=== PATIENT | female | born 2000 | race Caucasian/White ===

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

== ENCOUNTER 2018-02-01 10:19 | Outpatient (CLI) | payer MEDICAID ==
[2018-02-01 11:31] LABS: HCG,QUALITATIVE BLOOD NEGATIVE
== END 2018-02-01 10:20 | disposition home or self-care (01) ==
LOC: LAB 10:19
PROVIDERS: ATTEND Obstetrics & Gynecology
DX: Z01.812 Encounter for preprocedural laboratory examination (principal); N92.1 Excessive and frequent menstruation with irregular cycle
CPT/HCPCS: 36415; 83001; 83520; 84703

== ENCOUNTER 2018-02-02 06:08 | Day surgery (SDC) | payer MEDICAID ==
--- NOTE | 2018-02-01 12:38 | PREOP HISTORY & PHYSICAL ---
DATE OF SERVICE: 02/02/2018 Physician: Oralia Snider DO FACOG IDENTIFICATION: A 17-year-old G0. HISTORY OF PRESENT ILLNESS: This is a patient of [facility] who presents today on 02/01/2018 for scheduled preop visit. The patient unfortunately continues to have menometrorrhagia, dysmenorrhea, and chronic pelvic pain. We have been seeing her since 2014 for persistent pain in the lower left pelvis, as well as heavy irregular bleeding. Previous workup in the past has included a 04/01/2015 hysteroscopy, dilatation and curettage. EMB revealed inactive endometrium with variable pseudodecidualization ( progestational effect), negative for hyperplasia or cytologic atypia or chronic endometritis. 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 She was sent to the endocrinology for further diagnosis and workup. She saw Dr. Matthew Lacy, a medical custom bow maker, and did not feel that he can contribute to the patient's case, since she did not have a pituitary tumor. Dr. Lacy did call [facility], and [facility] stated they would be willing to do a hysterectomy for the patient for definitive therapy. The patient was then seen at [facility] with Ingrid Bloom MD, on 04/01/2017. She stated there was a wide variety of management options for abnormal uterine bleeding, including medical and surgical options. Recommended exhaust medical options before considering any definitive THERAPY SITE COORDINATOR surgeries. The patient does express desire to someday utilize her own eggs and carry a if at all possible. It does not seem that her future ovarian reserve is in jeopardy at this time. Discussed that her HPA axis is still in the process of continuing to mature, and at age 16, she has not reached her peak AMH levels yet. Dr. Bloom offered to follow the patient annually until her family building plans are completed. The patient continued to have an abnormal discharge that tended to be mucus- like in appearance. She underwent a 12/16/2015 diagnostic laparoscopy, hysteroscopy, and dilatation and curettage. There were some adhesions between the left fallopian tube and the omentum. An adhesion was sent to pathology due to the brown-appearing lesion. This came back as smooth muscle and fibrovascular tissue, negative for endometriosis. Dilatation and curettage at the same time showed predominantly inactive endometrium, with stromal changes consistent with exogenous hormone therapy. The patient has since been placed on control pills. The patient has more recently returned to ct on 01/23/2018. At this point in time, the bleeding is getting to be quite an issue. The patient has been very hesitant in the past to to have an IUD, since she does not want a foreign object in her reproductive tract. Given, however, the control pills have not successfully controlled the patient's bleeding, she has now decided to proceed with a Mirena IUD. In addition to the Mirena IUD, the patient would like to have endometrial curetting to hopefully remove this abnormal uterine lining, and hopefully let her body grow a new endometrial lining that is not dysfunctional. Currently the patient is doing well. Denies any nausea, vomiting, fevers, chills, diarrhea, or constipation. She is accompanied today with her fianceYeison. PAST MEDICAL HISTORY: Questionable hypothalamic hypogonadism. PAST SURGICAL HISTORY 1. 04/01/2015, hysteroscopy, dilatation and curettage. 2. 12/16/2015, laparoscopic lysis of adhesions and hysteroscopy dilatation and curettage. MEDICATIONS: Kelnor continuously. SOCIAL HISTORY: She denies any tobacco, alcohol, or illicit drug use. She is engaged to Yeison and planning on getting next year. She would like to consider using her eggs for a future . PAST OBSTETRICAL HISTORY: Nulligravida. PAST GYNECOLOGICAL HISTORY: All Paps have been within normal limits. The patient has had a history of frequent heavy menstruation. control pills have failed in the past for her. FAMILY HISTORY: Maternal aunt had ovarian cancer in her 20s. REVIEW OF SYSTEMS: Negative unless otherwise stated. Again, she denies any nausea, vomiting, fevers, chills, diarrhea, constipation. PHYSICAL EXAMINATION VITAL SIGNS: Weight is 187 pounds. Height is 64-1/2 inches, BMI is 31.6, blood pressure 104/64. GENERAL: The patient is a well-developed, well-nourished, female, in no apparent distress. She is alert and oriented x3. She is very pleasant and easy to speak to. HEENT: Within normal limits. HEART: Rate is regular. No murmurs or rubs. LUNGS: Lungs are clear to auscultation bilaterally. ABDOMEN: Soft, nontender. No masses, rebound, rigidity, or guarding. Well- healed laparoscopic incisions from her previous laparoscopy. DERMATOLOGY: The patient does have a large tattoo on her left anterolateral thigh. ASSESSMENT AND PLAN 1. A 17-year-old G0. 2. Heavy irregular menstruation. 3. Chronic pelvic pain. 4. Desires Mirena intrauterine device insertion. PLAN 1. We will proceed to a scheduled hysteroscopy, dilatation and curettage using the MyoSure, as well as a Mirena IUD insertion with a post-procedural cervical block. 2. The patient has been recommended to take ibuprofen and Tylenol for postop pain control. She also has been given a prescription for oxycodone for any breakthrough pain she may experience. 3. The patient has been counseled that she is to expect some cramping for 3-4 days after surgery, and irregular vaginal bleeding is normal in the setting of a newly placed Mirena IUD. 4. We will obtain a serum hCG, anti-Mullerian hormone, and follicle stimulating hormone today. 5. The patient is to see me in 2-3 weeks for routine postop visit. 6. The patient is to call should she have any worsening fevers, chills, abdominal pain, or vaginal bleeding. cc: Ines Rubin PA-C TD: 02/01/2018 10:44 EDSON
[2018-02-02] MEDS ORDERED: LACTATED RINGERS 1,000 ML IV ONE (06:40)
[2018-02-02] MEDS ORDERED: CELECOXIB 100 MG CAPSULE PO ONE (06:46)
[2018-02-02 06:58] LABS: HCG UR QUAL NEGATIVE
[2018-02-02] MEDS ORDERED: BUPIVACAINE 0.25%-EPI 1:200000 PF 30 ML VIAL ONE (07:54)
[2018-02-02] MEDS ORDERED: BUPIVACAINE 0.25%-EPI 1:200000 PF 30 ML VIAL SUBQ ONE (08:13)
[2018-02-02] MEDS ORDERED: PROPOFOL 200 MG/20 ML VIAL IVP ONE (08:15)
[2018-02-02] MEDS ORDERED: ePHEDrine 50 MG/ML VIAL IVP ONE (08:15)
[2018-02-02] MEDS ORDERED: fentaNYL 100 MCG/2 ML VIAL IVP ONE (08:15)
[2018-02-02] MEDS ORDERED: LIDOCAINE-MPF 2% 5 ML VIAL IM ONE (08:15)
--- NOTE | 2018-02-02 08:42 | OPERATIVE REPORT ---
Operative Report - Other Other Information/Narrative: Date of Operation: 02/02/2018 Surgeon: Oralia Snider DO FACOG Rn Neurology: None Anesthesiologist: Aman Guevara MD Anesthesia: LMA Pre-Op Dx: 1. 17 yo G0 2. Heavy irregular menstruation Post-Op Dx: 1. 17 yo G0 2. Heavy irregular menstruation Procedure: 1. Dilation and curettage 2. Myosure hysteroscopy 3. Mirena IUD insertion Findings: Mucous-like substance, otherwise WNL. Mirena expiration: May 2020, Lot#: [id number], S/N [id number], GTIN [id number] Specimens: Endometrial curettings Drains: None EBL: <5 mL Complications: None OP Note Dictation #: [id number]
[2018-02-02] MEDS ORDERED: ACETAMINOPHEN 1,000 MG/100 ML 100 ML IV ONE (08:47)
[2018-02-02] MEDS: fentaNYL 100 MCG/2 ML VIAL ONE ×2 (08:50→08:56)
[2018-02-02 09:39] VITALS: BP 110/62
--- NOTE | 2018-02-02 10:38 | OPERATIVE REPORT ---
DATE OF OPERATION: 02/02/2018 SURGEON: Oralia Snider D.O., FACOG VP OF MARKETING: None. ANESTHESIOLOGIST: Aman Guevara M.D. ANESTHESIA: LMA. PREOPERATIVE DIAGNOSES 1. A 17-year-old G0. 2. Heavy irregular menstruation. POSTOPERATIVE DIAGNOSES 1. A 17-year-old G0. 2. Heavy irregular menstruation. PROCEDURE 1. Dilatation and curettage. 2. MyoSure hysteroscopy. 3. Mirena IUD insertion. FINDINGS: Copious amount of mucus-like like substance, otherwise within normal limits. Mirena IUD with expiration May 2020, lot number [id number]. The S/N is [id number], and the GTIN is [id number]. SPECIMENS REMOVED: Endometrial curettings. DRAINS: None. ESTIMATED BLOOD LOSS: Less than 5 mL COMPLICATIONS: None. BRIEF HISTORY: This is a patient of [facility], who has a very long history of irregular heavy menstruation. Unfortunately, prior dilatation and curettage as well as continuous hormone therapy has not satisfactorily corrected the patient's menstruation. At this point in time she has elected to proceed with placement of a Mirena IUD in addition to her control pills. The patient stated that she would like to have her endometrium curetted so that the Mirena IUD would work at its maximum. I explained to the patient the risks, benefits, alternatives, indications, and expectations of a hysteroscopy, dilatation and curettage, as well as a Mirena IUD insertion. I explained to her the risks, benefits, alternatives, indications, and expectations, including the risk of infection, hemorrhage and uterine perforation. The patient understands that she is to expect irregular vaginal bleeding for probably the next 2-3 months and some more immediate postoperative cramping for the next day or 2. After all of the patient's questions were answered to her satisfaction, she verbalized her desire to proceed with surgery. Consent forms have been signed. OPERATION IN DETAIL: The patient was identified and consented, taken to the operating room, where IV access was already in place. She was then given sequential compression devices, which were placed on lower extremities and turned on. The patient was then given satisfactory LMA anesthesia as per Dr. Guevara. The patient was then prepped and draped in a normal sterile fashion in the lithotomy position using Yellofin stirrups. Her bladder was drained with the in and out catheter. Timeout was performed, which correctly identified the patient, site of the procedure, and the procedures themselves. A single-tooth tenaculum was placed on the anterior lip of the cervix, and the uterus was then sounded to 7 cm. The cervix was then serially dilated to a 6- Uzbek. A MyoSure hysteroscope was then placed into the uterus, and sodium chloride was used as distending medium. Immediately placing the hysteroscope into the cervix, there was a copious amount of clear, colorless mucus. Then a large collection of dark brown blood was seen coming from the endometrium. The dark brown blood also had quite a mucus-like appearance to it. It actually came out in an almost tube-like presentation. Photos of this were taken. The endometrium itself was thinned out, consistent with exogenous progesterone that the patient had been taking. Both tubal ostia were seen bilaterally. There were no other abnormalities seen in the endometrium. There were no polyps or fibroids seen. The endometrium was then sharply curetted. Specimen was sent on the [facility]. The cervix had been anesthetized with a total of 20 mL of 0.25% lidocaine with epinephrine. Finally, the Mirena ID was inserted and the strings were cut approximately 1 cm distal to the external cervical os. All instruments were removed out of the vagina, and the cervix and vagina were hemostatically stable. The surgery had been completed. The patient was taken to the recovery room in stable and awake condition. She will be discharged to home later today after postoperative criteria are met. The patient has a prescription for oxycodone for any breakthrough pain that over -the-counter ibuprofen and Tylenol do not take care. The patient is to see me at [facility] in 2 weeks for routine postop checkup. I will make sure to talk to the patient's fiance as well as mother about her good surgical outcome. cc: Ines Rubin PA-C TD: 02/02/2018 08:56 MTDKristen
== END 2018-02-02 06:09 | disposition home or self-care (01) ==
LOC: SDS 06:08
PROVIDERS: ATTEND Obstetrics & Gynecology
PROC: 0UH98HZ Insertion of Contraceptive Device into Uterus, Via Natural or Artificial Opening Endoscopic (ICD-10-PCS; 2018-02-02)
PROC: 0UDB8ZZ Extraction of Endometrium, Via Natural or Artificial Opening Endoscopic (ICD-10-PCS; principal; 2018-02-02 07:30)
DX: N92.1 Excessive and frequent menstruation with irregular cycle (principal); N94.6 Dysmenorrhea, unspecified; R10.2 Pelvic and perineal pain; J45.990 Exercise induced bronchospasm
CPT/HCPCS: 58300; 58558; 81025; A9270; J0131; J7120

== ENCOUNTER 2018-02-06 08:00 | Outpatient (CLI) | payer MEDICAID ==
[2018-02-06 19:17] LABS: BASOPHILS % (AUTO) 0.3 %; EOSINOPHILS # (AUTO) 0.1 10^3/uL (0.0-0.7); EOSINOPHILS % (AUTO) 0.9 %; HGB - HEMOGLOBIN 13.7 g/dL (12.0-16.0); LYMPHOCYTES # (AUTO) 2.5 10^3/uL (1.5-3.5); LYMPHOCYTES % (AUTO) 28.9 %; MEAN CORPUSCULAR HEMOGLOBIN 29.8 pg (27.0-31.0); MEAN CORPUSCULAR HGB CONC 33.1 g/dL (32.0-36.0); MEAN CORPUSCULAR VOLUME 90.1 fL (81.0-99.0); MEAN PLATELET VOLUME 8.7 fL (7.9-10.8); MONOCYTES # (AUTO) 0.5 10^3/uL (0.0-1.0); MONOCYTES % (AUTO) 5.4 %; NEUTROPHILS # (AUTO) 5.5 10^3/uL (1.5-6.6); NEUTROPHILS % (AUTO) 64.5 %; PLT - PLATELET COUNT 298 10^3/uL (130-450); RED BLOOD COUNT 4.59 10^6/uL (4.20-5.40); RED CELL DISTRIBUTION WIDTH 13.4 % (12.0-15.0); WHITE BLOOD COUNT 8.6 x10^3/uL (4.8-10.8)
[2018-02-06 19:23] LABS: BILIRUBIN,URINE NEGATIVE (NEGATIVE); GLUCOSE, URINE (UA) NEGATIVE (NEGATIVE); KETONES,URINE (UA) NEGATIVE (NEGATIVE); LEUKOCYTE ESTERASE, URINE NEGATIVE (NEGATIVE); NITRITE,URINE NEGATIVE (NEGATIVE); OCCULT BLOOD,URINE TRACE-INTA (NEGATIVE); PROTEIN,URINE NEGATIVE (NEGATIVE); UROBILINOGEN,URINE 0.2 (NORMAL) E.U./dL (NORMAL)
[2018-02-06 19:24] LABS: CLARITY,URINE CLEAR (CLEAR)
[2018-02-06 20:32] LABS: BACTERIA,URINE Many /HPF (None Seen); SQUAMOUS EPITHELIAL CELL,UR MOD Squamous (<= Few)
== END 2018-02-06 08:01 | disposition home or self-care (01) ==
LOC: LAB.N 08:00
PROVIDERS: ATTEND Obstetrics & Gynecology
DX: R10.2 Pelvic and perineal pain (principal)
CPT/HCPCS: 36415; 81001; 84702; 85025; 85651; 87086

== ENCOUNTER 2018-02-08 08:00 | Outpatient (CLI) | payer MEDICAID | END 2018-02-08 08:01 | disposition home or self-care (01) | LOC: LAB.R 08:00 | PROVIDERS: ATTEND Obstetrics & Gynecology | DX: R10.2 Pelvic and perineal pain (principal) | CPT/HCPCS: 87070 ==

== ENCOUNTER 2018-02-08 12:09 | Outpatient (CLI) | payer MEDICAID ==
[2018-02-08 12:22] LABS: BASOPHILS # (AUTO) 0.1 10^3/uL (0.0-0.1); BASOPHILS % (AUTO) 0.5 %; EOSINOPHILS # (AUTO) 0.1 10^3/uL (0.0-0.7); EOSINOPHILS % (AUTO) 0.5 %; HGB - HEMOGLOBIN 13.9 g/dL (12.0-16.0); LYMPHOCYTES # (AUTO) 2.3 10^3/uL (1.5-3.5); LYMPHOCYTES % (AUTO) 21.7 %; MEAN CORPUSCULAR HEMOGLOBIN 29.8 pg (27.0-31.0); MEAN CORPUSCULAR HGB CONC 33.9 g/dL (32.0-36.0); MEAN PLATELET VOLUME 7.9 fL (7.9-10.8); MONOCYTES # (AUTO) 0.5 10^3/uL (0.0-1.0); MONOCYTES % (AUTO) 4.4 %; NEUTROPHILS # (AUTO) 7.6 10^3/uL (1.5-6.6); NEUTROPHILS % (AUTO) 72.9 %; PLT - PLATELET COUNT 317 10^3/uL (130-450); RED BLOOD COUNT 4.67 10^6/uL (4.20-5.40); WHITE BLOOD COUNT 10.4 x10^3/uL (4.8-10.8)
== END 2018-02-08 12:10 | disposition home or self-care (01) ==
LOC: LAB 12:09
PROVIDERS: ATTEND Obstetrics & Gynecology
DX: D64.9 Anemia, unspecified (principal)
CPT/HCPCS: 36415; 85025; 85651

== ENCOUNTER 2018-02-08 16:37 | Outpatient (CLI) | payer MEDICAID ==
--- NOTE | 2018-02-12 14:10 | Ultrasound Report ---
Procedure Date: 02/08/2018 Accession Number: [id number] / [id number] Procedure: US - Pelvic w/Transvaginal CPT Code: FULL RESULT: EXAM: Pelvic w/Transvaginal DATE: 02/08/2018 5:26 PM CLINICAL HISTORY: LEFT LOWER QUADRANT PAIN, POST OP WITH FEVER COMPARISON: CT abdomen and pelvis 06/26/2017. TECHNIQUE: Realtime transabdominal imaging of the pelvis, with static image documentation. FINDINGS: Uterus: 9 x 2 x 3.8 cm, volume 36 cc. Anteverted position. Normal overall size and echotexture. Masses: None. Endometrium: The endometrial stripe cannot be confidently measured due to the intrauterine device. Visualized portions of the device are appropriately positioned. Cervix: Unremarkable. Right Ovary/Adnexa: 1.3 x 2.3 x 0.7 cm, volume 1.1 cc. Normal echotexture. The adnexa were not interrogated by color Doppler ultrasound. Left Ovary/Adnexa: 2.7 x 0.9 x 1.3 cm, volume 1.6 cc. Normal echotexture. No adnexal mass is seen. Free Fluid: A small amount of free fluid is seen in the cul-de-sac. Other: None. IMPRESSION: Interval placement of an IUD with visualized portions within the endometrial cavity. RADIA
== END 2018-02-08 16:38 | disposition home or self-care (01) ==
LOC: DI 16:37
PROVIDERS: ATTEND Obstetrics & Gynecology
DX: R10.32 Left lower quadrant pain (principal); R50.82 Postprocedural fever; Z97.5 Presence of (intrauterine) contraceptive device; R10.2 Pelvic and perineal pain; D64.9 Anemia, unspecified
CPT/HCPCS: 36415; 76830; 76856; 85025; 85651; 87070

== ENCOUNTER 2018-06-02 10:07 | Outpatient (CLI) | payer MEDICAID ==
--- NOTE | 2018-06-03 00:10 | Ultrasound Report ---
Reason: DIARRHEA,CHRONIC Procedure Date: 06/02/2018 Accession Number: [id number] / [id number] Procedure: US - Abdomen Limited CPT Code: FULL RESULT: EXAM: ABDOMEN ULTRASOUND LIMITED, RUQ EXAM DATE: 06/02/2018 10:49 AM. CLINICAL HISTORY: Chronic diarrhea. Right-sided pain. COMPARISON: ABDOMEN/PELVIS W/O 06/26/2017 8:05 AM. TECHNIQUE: Real-time scanning was performed with static images obtained. FINDINGS: Liver: Normal in size and echotexture. 14.6 cm. Main portal vein flow: Hepatopetal. Gallbladder: Normal. No stones, wall thickening, or sonographic Doe's sign. Biliary System: CBD measures 4 mm. No intrahepatic or extrahepatic ductal dilatation. Other: The visualized pancreas and right kidney are unremarkable. No free fluid. IMPRESSION: Normal. No cholelithiasis or cholecystitis. RADIA
== END 2018-06-02 10:08 | disposition home or self-care (01) ==
LOC: DI 10:07
PROVIDERS: ATTEND Physician Assistant Medical
DX: K52.9 Noninfective gastroenteritis and colitis, unspecified (principal)
CPT/HCPCS: 76705

== ENCOUNTER 2018-06-12 11:43 | Outpatient (CLI) | payer MEDICAID ==
[2018-06-12] MEDS ORDERED: MORPHINE 2 MG/ML CARPUJECT IVP ONE (15:00)
--- NOTE | 2018-06-13 14:53 | Nuclear Medicine Report ---
Reason: CHRONIC DIARRHEA Procedure Date: 06/12/2018 Accession Number: [id number] / [id number] Procedure: NM - Hepatobiliary HIDA w/ Rx CPT Code: FULL RESULT: EXAM: HEPATOBILIARY SCAN EXAM DATE: 06/12/2018 04:14 PM. CLINICAL HISTORY: CHRONIC DIARRHEA. COMPARISON: Ultrasound exam dated 06/02/2018 TECHNIQUE: Following the intravenous administration of 5.1 mCi of Tc99m Mebrofenin, a hepatobiliary scan was done centered on the right upper quadrant region in multiple sequential images and projections. Morphine sulfate given: Yes, 2 mg IV. Four-hour delayed images performed: No. FINDINGS: Normal extraction of tracer from the blood pool indicating normal hepatocellular function. The liver size and shape is grossly within normal limits. There is activity visualized within the bile ducts and small bowel within the first hour. Gallbladder activity is present on the delayed post morphine images. IMPRESSION: 1. There is delayed filling of the gallbladder, which in the absence of gallstones are consistent with functional gallbladder disorder. 2. Patent common bile duct. 3. No enterogastric bile reflux. RADIA
== END 2018-06-12 11:44 | disposition home or self-care (01) ==
LOC: DI 11:43
PROVIDERS: ATTEND Physician Assistant Medical
DX: K52.9 Noninfective gastroenteritis and colitis, unspecified (principal)
CPT/HCPCS: 78227

== ENCOUNTER 2018-12-25 14:31 | Outpatient (CLI) | payer BC, MEDICAID | END 2018-12-25 14:32 | disposition home or self-care (01) | LOC: LAB 14:31 | PROVIDERS: ATTEND Obstetrics & Gynecology | DX: N93.8 Other specified abnormal uterine and vaginal bleeding (principal) | CPT/HCPCS: 36415; 81599; 82397; 82670; 83001 ==

== ENCOUNTER 2019-01-03 08:00 | Outpatient (CLI) | payer BC, MEDICAID ==
[2019-01-03 15:24] LABS: BILIRUBIN,URINE NEGATIVE (NEGATIVE); GLUCOSE, URINE (UA) NEGATIVE (NEGATIVE); KETONES,URINE (UA) NEGATIVE (NEGATIVE); LEUKOCYTE ESTERASE, URINE NEGATIVE (NEGATIVE); NITRITE,URINE NEGATIVE (NEGATIVE); OCCULT BLOOD,URINE TRACE-INTA (NEGATIVE); PH,URINE 6.5 PH (5.0-7.5); PROTEIN,URINE NEGATIVE (NEGATIVE); UROBILINOGEN,URINE 0.2 (NORMAL) E.U./dL (NORMAL)
[2019-01-03 15:26] LABS: CLARITY,URINE CLEAR (CLEAR)
[2019-01-03 15:41] LABS: BACTERIA,URINE Few /HPF (None Seen); RBC,URINE 0-5 /HPF (0-5); SQUAMOUS EPITHELIAL CELL,UR FEW Squamous (<= Few)
== END 2019-01-03 23:59 | disposition home or self-care (01) ==
LOC: LAB.R 08:00
PROVIDERS: ATTEND Physician Assistant Medical
DX: N39.0 Urinary tract infection, site not specified (principal)
CPT/HCPCS: 81001; 81003; 87077; 87086; 87181

== ENCOUNTER 2019-05-20 13:57 | Emergency (ER) | payer OTHER, BC, MEDICAID ==
[2019-05-20 14:10] VITALS: BP 143/93
--- NOTE | 2019-05-20 14:47 | ED Physician Documentation ---
PD HPI BACK INJURY - Stated complaint Stated Complaint: BACK PX - History obtained from History obtained from: Patient - History of Present Illness Location: Right (She was bending over today at work and felt a pop in the right low back and now has pain radiating down the right leg with numbness in the right leg. No saddle anesthesia or fevers. 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 - Present Medications Home Medications: Ambulatory Orders Medication Instructions Recorded Confirmed Norethindrone-E.estradiol-Iron 1 each PO DAILY 02/01/18 02/02/18 [Microgestin Fe 1.5-30 Tab] Hydrocodone/Acetaminophen 1 - 2 each PO Q6H PRN #14 tablet 05/20/19 [Hydrocodon-Acetaminophen 5-325] Omeprazole 05/20/19 Physical Therapy 1 unit TD ONCE #1 05/20/19 buPROPion [Wellbutrin Sr] 05/20/19 predniSONE [Deltasone] 20 mg PO [id number] #21 tab 05/20/19 - Allergies Allergies/Adverse Reactions: Allergies Allergy/AdvReac Type Severity Reaction Status Date / Time amoxicillin [Amoxicillin] Allergy Intermediate Hives Verified 02/02/18 07:00 cephalexin Allergy Hives Verified 02/02/18 07:00 ciprofloxacin [From Cipro] Allergy Rash Verified 02/02/18 07:00 - Social History Does the pt smoke?: No Smoking Status: Never smoker Does the pt drink ETOH?: No Does the pt have substance abuse?: No - Immunizations Immunizations are current?: Yes - POLST Patient has POLST: No PD ED PE NORMAL - Vitals Vital signs reviewed: Yes - General General: Alert and oriented X 3, No acute distress - Back Back: Other (Mild tenderness to the right of the lumbar spine without midline tenderness. Diminished sensation in a right L4 distribution and diminished patellar reflex on the right. Otherwise sensation and reflexes are normal.) - Neuro Neuro: Alert and oriented X 3, Normal speech Results - Vitals Vitals: Vital Signs - 24 hr 05/20/19 14:08 Temperature 36.4 C L Heart Rate 85 Respiratory 18 Rate Blood Pressure 143/93 H O2 Saturation 100 Oxygen O2 Source Room air PD MEDICAL DECISION MAKING - ED course ED course: This is a 19-year-old woman with an acute right L4 radiculopathy, work-related injury. L&I paperwork was completed. Departure - Departure Disposition: Home, Self Care Clinical Impression: Sciatica Qualifiers: Laterality: right Qualified Code(s): M54.31 - Sciatica, right side Condition: Good Record reviewed to determine appropriate education?: Yes Instructions: ED Sciatica Prescriptions: Hydrocodone/Acetaminophen [Hydrocodon-Acetaminophen 5-325] 1 - 2 each PO Q6H PRN #14 tablet PRN Reason: pain Physical Therapy 1 unit TD ONCE #1 predniSONE [Deltasone] 20 mg PO [id number] #21 tab Comments: Follow-up with ROCKY Rubin within the week if not improved. Return for new or worsening symptoms. Forms: Activity restrictions
== END 2019-05-20 14:54 | disposition home or self-care (01) ==
LOC: ED 13:57
DX: S39.92XA Unspecified injury of lower back, initial encounter (principal); X50.1XXA Overexertion from prolonged static or awkward postures, initial encounter; Y99.0 Civilian activity done for income or pay; M54.16 Radiculopathy, lumbar region; M54.31 Sciatica, right side
CPT/HCPCS: 1040M; 99283

== ENCOUNTER 2019-06-10 11:40 | Outpatient (CLI) | payer BC, MEDICAID ==
--- NOTE | 2019-06-10 13:41 | XRAY Report ---
Reason: RIGHT LUMBAR RADICULOPATHY Procedure Date: 06/10/2019 Accession Number: [id number] / [id number] Procedure: WCP - Lumbar Spine 2 View CPT Code: Final Report FULL RESULT: EXAM: LUMBOSACRAL SPINE RADIOGRAPHY EXAM DATE: 06/10/2019 11:40 AM. CLINICAL HISTORY: Right lumbar radiculopathy. COMPARISONS: None. TECHNIQUE: 3 views. FINDINGS: Alignment: Normal. No spondylolisthesis or scoliosis. Bones: There are 6 nonrib-bearing lumbar vertebral elements. No fractures or bone lesions. Disks: Normal. Disk heights are maintained. Facets: No degenerative changes. Sacroiliac Joints: Unremarkable. Soft Tissues: Normal. The visualized bowel gas pattern is normal. IMPRESSION: Normal lumbar spine radiography. RADIA
== END 2019-06-10 23:59 | disposition home or self-care (01) ==
LOC: DI.WCP 11:40
PROVIDERS: ATTEND Physician Assistant Medical
DX: M54.16 Radiculopathy, lumbar region (principal)
CPT/HCPCS: 72100

== ENCOUNTER 2019-06-15 13:48 | Outpatient (CLI) | payer OTHER, BC, MEDICAID ==
--- NOTE | 2019-06-16 13:50 | MRI Report ---
Reason: LUMBAR RADICULOPATHY RT Procedure Date: 06/15/2019 Accession Number: [id number] / [id number] Procedure: MRI - Lumbar Spine W/O CPT Code: Final Report FULL RESULT: EXAM: MRI LUMBAR SPINE WITHOUT CONTRAST EXAM DATE: 06/15/2019 02:44 PM. CLINICAL HISTORY: 19-year-old with low back pain and right lower extremity radiculopathy. Evaluate for lumbar pathology. COMPARISON: Lumbar radiograph 06/10/2019. TECHNIQUE: Multiplanar, multisequence T1-weighted and fluid-sensitive sequences of the lumbar spine from T12 to S1 without contrast. Other: None. FINDINGS: Spinal Canal: The conus terminates at T12-L1. The conus medullaris and cauda equina are unremarkable. Alignment: Minimal grade 1 retrolisthesis of L3 on L4 and L4 on L5. Bone Marrow: Five [id number]-[id number] lumbar vertebral bodies are assumed. No acute fracture or traumatic subluxation. There is a T2/T1 hyperintense lesion seen at L4 that likely represents hemangioma. No other abnormal marrow replacing lesion seen. Disk Levels/Facets: Mild endplate degenerative changes and mild loss of disk height. T12-L1: Bilateral arthritic facet disease. No spinal canal stenosis. No neuroforaminal narrowing. L1-L2: Bilateral arthritic facet disease. No spinal canal stenosis. No neuroforaminal narrowing. L2-L3: Bilateral arthritic facet disease. Small posterior disk bulge and prominent epidural fat. Mild spinal canal stenosis. No neuroforaminal narrowing. L3-L4: Bilateral arthritic facet disease. Small posterior disc bulge and prominent epidural fat. Mild spinal canal stenosis. Minimal neuroforaminal narrowing. L4-L5: Bilateral arthritic facet disease. Small central disk protrusion and prominent epidural fat. Moderate spinal canal stenosis and effacement of the lateral recesses with contact of the traversing bilateral L5 nerve roots. Mild neuroforaminal narrowing. L5-S1: Small left subarticular to neural foraminal disk protrusion. Bilateral arthritic facet disease. Effacement of the left lateral recess with contact of the traversing left S1 nerve root. Minimal left and mild to moderate right neural foraminal narrowing. Musculature: Normal. No edema or fatty atrophy. Other: The partially visualized retroperitoneum is unremarkable. IMPRESSION: 1. Minimal grade 1 retrolisthesis of L3 on L4 and L4 on L5 2. Multilevel degenerative changes. 2-L3: Mild spinal canal stenosis. No neuroforaminal narrowing. L3-L4: Mild spinal canal stenosis. Minimal neuroforaminal narrowing. L4-L5: Small central disk protrusion. Moderate spinal canal stenosis and effacement of the lateral recesses with contact of the traversing bilateral L5 nerve roots. Mild neuroforaminal narrowing. L5-S1: Small left subarticular to neuroforaminal disk protrusion. Effacement of the left lateral recess with contact of the traversing left S1 nerve root. Minimal left and mild to moderate right neuroforaminal narrowing. Comment: The following findings are so common in adults without low back pain that while we report their presence, they must be interpreted with caution and in the context of the clinical situation. (Reference Pbk et al, Spine 2001) Prevalence of findings in patients without low back pain: Disk degeneration (any evidence): 92% Disk desiccation/T2 signal loss: 83% Disk height loss: 56% Disk bulge: 64% Disk protrusion: 32% Annular tear/high intensity zone: 38% RADIA
== END 2019-06-15 13:49 | disposition home or self-care (01) ==
LOC: DI 13:48
PROVIDERS: ATTEND Physician Assistant Medical
DX: M51.16 Intervertebral disc disorders with radiculopathy, lumbar region (principal); M48.061 Spinal stenosis, lumbar region without neurogenic claudication
CPT/HCPCS: 72148

== ENCOUNTER 2019-10-08 13:29 | Emergency (ER) | payer OTHER, BC, MEDICAID ==
[2019-10-08 14:31] LABS: HGB - HEMOGLOBIN 12.1 g/dL (12.0-16.0); MEAN CORPUSCULAR HGB CONC 30.9 g/dL (32.0-36.0); MEAN CORPUSCULAR VOLUME 90.7 fL (81.0-99.0); MEAN PLATELET VOLUME 9.2 fL (7.9-10.8); RED BLOOD COUNT 4.32 10^6/uL (4.20-5.40)
[2019-10-08 14:45] LABS: ALBUMIN 4.2 g/dL (3.2-5.5); ALBUMIN/GLOBULIN RATIO 1.2 (1.0-2.2); BILIRUBIN,TOTAL 0.3 mg/dL (0.2-1.0); CALCIUM 9.7 mg/dL (8.5-10.3); CREATININE 0.8 mg/dL (0.4-1.0); TOTAL PROTEIN 7.6 g/dL (6.7-8.2)
--- NOTE | 2019-10-08 15:35 | ED Physician Documentation ---
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 Minimal bleeding. She cleaned it right away. The patient chart was reviewed by provider at the clinic and no history of blood born diseases in the source patient.) Where injury occurred: Work Timing - onset: How many hours ago (1), Today Timing - details: Abrupt onset Worsened by: Palpating Associated symptoms: No: Weakness, Numbness, Swelling Similar symptoms before: Has not had sx before Review of Systems Neurologic: denies: Focal weakness, Numbness PD PAST MEDICAL HISTORY - Past Medical History Cardiovascular: None Respiratory: Asthma Endocrine/Autoimmune: None GI: None : Chronic bladder infection, Kidney stones HEENT: Other Psych: None Musculoskeletal: None Derm: None - Past Surgical History Past Surgical History: Yes /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: Dilation and currettage - Present Medications Home Medications: Ambulatory Orders Medication Instructions Recorded Confirmed Norethindrone-E.estradiol-Iron 1 each PO DAILY 02/01/18 02/02/18 [Microgestin Fe 1.5-30 Tab] Hydrocodone/Acetaminophen 1 - 2 each PO Q6H PRN #14 tablet 05/20/19 [Hydrocodon-Acetaminophen 5-325] Omeprazole 05/20/19 Physical Therapy 1 unit TD ONCE #1 05/20/19 buPROPion [Wellbutrin Sr] 05/20/19 predniSONE [Deltasone] 20 mg PO [id number] #21 tab 05/20/19 - Allergies Allergies/Adverse Reactions: Allergies Allergy/AdvReac Type Severity Reaction Status Date / Time amoxicillin [Amoxicillin] Allergy Intermediate Hives Verified 10/08/19 13:41 cephalexin Allergy Hives Verified 10/08/19 13:41 ciprofloxacin [From Cipro] Allergy Rash Verified 10/08/19 13:41 - Social History Does the pt smoke?: No Smoking Status: Never smoker Does the pt drink ETOH?: Yes Does the pt have substance abuse?: No - Immunizations Immunizations are current?: Yes - POLST Patient has POLST: No PD ED PE NORMAL - Vitals Vital signs reviewed: Yes - General General: Alert and oriented X 3, No acute distress, Well developed/nourished - Derm Derm: Normal color, Warm and dry - Extremities Extremities: Normal ROM s pain, Other (right index finger with minimally visible puncture wound c/w needle trip. ) - Neuro Neuro: No motor deficit, No sensory deficit Results - Vitals Vitals: Vital Signs - 24 hr 10/08/19 10/08/19 13:41 15:57 Temperature 37 C Heart Rate 63 65 Respiratory 16 16 Rate Blood Pressure 117/72 122/74 O2 Saturation 100 100 Oxygen O2 Source Room air - Labs Labs: Laboratory Tests 10/08/19 10/08/19 14:26 14:26 WBC 10.0 RBC 4.32 Hgb 12.1 Hct 39.2 MCV 90.7 MCH 28.0 MCHC 30.9 L RDW 14.0 Plt Count 337 MPV 9.2 Sodium 136 Potassium 3.9 Chloride 100 L Carbon Dioxide 27 Anion Gap 9.0 BUN 11 Creatinine 0.8 Estimated GFR (MDRD) 91 Glucose 89 Calcium 9.7 Total Bilirubin 0.3 AST 16 ALT 16 Alkaline Phosphatase 80 Total Protein 7.6 Albumin 4.2 Globulin 3.4 Albumin/Globulin Ratio 1.2 PD MEDICAL DECISION MAKING - ED course Complexity details: considered differential (She has had Hep B vaccinations. The source patient does not have recorded blood born diseases. Svitlana feels it is low risk exposure and does not feel need for antivirals.), d/w patient Departure - Departure Disposition: 01 Home, Self Care Clinical Impression: Needle stick injury of finger Condition: Stable Record reviewed to determine appropriate education?: Yes Instructions: ED Body Fluid Exp HC Worker Follow-Up: Ines Rubin PA-C [Primary Care Provider] - Comments: Watch for signs of infection. Follow-up with infection control from the hospital here. Discharge Date/Time: 10/08/19 15:57
[2019-10-08 15:58] VITALS: BP 122/74
[2019-10-09 12:25] LABS: HEPATITIS C ANTIBODY NON-REACTIVE (NON-REACTIVE)
[2019-10-09 14:15] LABS: HIV AG/AB 4TH GEN NON-REACTIVE (NON-REACTIVE)
== END 2019-10-08 15:57 | disposition home or self-care (01) ==
LOC: ED 13:29
DX: S61.230A Puncture wound without foreign body of right index finger without damage to nail, initial encounter (principal); Z77.21 Contact with and (suspected) exposure to potentially hazardous body fluids; W46.1XXA Contact with contaminated hypodermic needle, initial encounter; Y93.89 Activity, other specified; Y99.0 Civilian activity done for income or pay
CPT/HCPCS: 36415; 80053; 85027; 86317; 86803; 87389; 99282; 99283

== ENCOUNTER 2022-10-02 08:41 | Outpatient (CLI) | payer MEDICAID ==
[2022-10-02 09:17] LABS: BASOPHILS # (AUTO) 0.1 10^3/uL (0.0-0.1); BASOPHILS % (AUTO) 0.6 %; EOSINOPHILS # (AUTO) 0.3 10^3/uL (0.0-0.7); EOSINOPHILS % (AUTO) 3.5 %; HGB - HEMOGLOBIN 14.2 g/dL (12.0-16.0); LYMPHOCYTES # (AUTO) 2.4 10^3/uL (1.5-3.5); MEAN CORPUSCULAR HEMOGLOBIN 28.8 pg (27.0-31.0); MEAN CORPUSCULAR HGB CONC 32.3 g/dL (32.0-36.0); MEAN CORPUSCULAR VOLUME 89.2 fL (81.0-99.0); MEAN PLATELET VOLUME 9.8 fL (7.9-10.8); MONOCYTES # (AUTO) 0.5 10^3/uL (0.0-1.0); MONOCYTES % (AUTO) 5.7 %; PLT - PLATELET COUNT 361 10^3/uL (130-450); RED BLOOD COUNT 4.93 10^6/uL (4.20-5.40); RED CELL DISTRIBUTION WIDTH 15.4 % (12.0-15.0); WHITE BLOOD COUNT 8.1 x10^3/uL (4.8-10.8)
[2022-10-02 09:43] LABS: THYROID STIMULATING HORMONE 1.03 uIU/mL (0.34-5.60)
[2022-10-02 09:50] LABS: FERRITIN 9.2 ng/mL (11.0-306.8)
[2022-10-02 09:54] LABS: FOLATE 4.14 ng/mL (5.90 - >24.8)
[2022-10-02 10:22] LABS: ALBUMIN 4.3 g/dL (3.2-5.5); ALBUMIN/GLOBULIN RATIO 1.3 (1.0-2.2); ALKALINE PHOSPHATASE 85 IU/L (42-121); ALT ALANINE AMINOTRANSFERASE 12 IU/L (10-60); AST ASPARTATE AMINOTRANSFERASE 15 IU/L (10-42); BILIRUBIN,TOTAL 0.5 mg/dL (0.2-1.0); BUN - BLOOD UREA NITROGEN 7 mg/dL (6-20); CALCIUM 9.4 mg/dL (8.5-10.3); CARBON DIOXIDE - CO2 24 mmol/L (21-32); CHLORIDE 105 mmol/L (101-111); CHOLESTEROL 169 mg/dL; CREATININE 0.8 mg/dL (0.4-1.0); GFR - MDRD 88 (>89); GLUCOSE 94 mg/dL (70-100); HDL CHOLESTEROL 42 mg/dL; LDL CHOLESTEROL,CALCULATED 115 mg/dL; LDL/HDL RATIO 2.7 (<4.4); POTASSIUM 3.8 mmol/L (3.5-5.0); SODIUM 137 mmol/L (135-145); TOTAL PROTEIN 7.6 g/dL (6.7-8.2); TRIGLYCERIDES 61 mg/dL; VLDL CHOLESTEROL 12 mg/dL
== END 2022-10-02 08:42 | disposition home or self-care (01) ==
LOC: LAB 08:41
PROVIDERS: ATTEND Family Medicine
DX: E78.01 Familial hypercholesterolemia (principal); D50.9 Iron deficiency anemia, unspecified; E56.9 Vitamin deficiency, unspecified; G62.9 Polyneuropathy, unspecified; Z79.899 Other long term (current) drug therapy; N92.6 Irregular menstruation, unspecified; N80.9 Endometriosis, unspecified
CPT/HCPCS: 36415; 80053; 80061; 82306; 82607; 82728; 82746; 83721; 84443; 85025